=== PATIENT | female | born 1970 | race American Indian/Alaskan Native ===

== ENCOUNTER 2018-01-16 06:22 | Day surgery (SDC) | payer BC, MEDICAID ==
--- NOTE | 2018-01-16 07:24 | Anesthesia Day of Surgery ---
Anesthesia Day of Surgery - Day of Surgery Patient Examined: Yes Patient H&P Reviewed: Yes Patient is NPO: Yes
--- NOTE | 2018-01-16 07:24 | Anesthesia Consultation ---
Anesthesia Consult and Med Hx Date of service: 01/16/18 - Airway Anesthetic Teeth Evaluation: Good ROM Head & Neck: Adequate Mental/Hyoid Distance: Adequate Mallampati Class: Class II Intubation Access Assessment: Good - Pulmonary Exam CTA: Yes - Cardiac Exam Cardiac Exam: RRR - Pre-Operative Health Status ASA Pre-Surgery Classification: ASA2 Proposed Anesthetic Plan: General - Central Nervous System Hx Psychiatric Problems: No - Hematic Hx Anemia: Yes (on iron supplements. no h/o blood transfusion) - Other Systems Hx Cancer: No - Additional Comments Anesthesia Medical History Comments: Informed consent obtained
[2018-01-16 07:26] LABS: Basophils % (Auto) 0.6 % (0.0-1.8); Eosinophils # (Auto) 0.1 K/mm3 (0.0-0.4); Eosinophils % (Auto) 1.7 % (0.0-4.3); Hematocrit 32.9 % (30.3-42.9); Hemoglobin 10.6 gm/dl (10.1-14.3); Lymphocytes % (Auto) 25.5 % (13.4-35.0); Mean Corpuscular HGB Conc 32 % (30-34); Mean Corpuscular Volume 74 fl (79-97); Monocytes # (Auto) 0.4 K/mm3 (0.0-0.8); Monocytes % (Auto) 9.9 % (0.0-7.3); Platelet Count 301 K/mm3 (140-440); Red Blood Count 4.43 M/mm3 (3.65-5.03); Red Cell Distribution Width 17.3 % (13.2-15.2)
[2018-01-16 07:27] LABS: Mean Corpuscular Hemoglobin 24 pg (28-32)
[2018-01-16] MEDS ORDERED: SUBLIMAZE ONE (07:35)
[2018-01-16] MEDS ORDERED: XYLOCAINE MPF 2% ONE (07:35)
[2018-01-16] MEDS ORDERED: DIPRIVAN 10 MG/ML IV ONE ×2 (07:37→07:41)
--- NOTE | 2018-01-16 07:37 | Short Stay Summary ---
Short Stay Documentation Date of service: 01/16/18 Narrative H&P: Pt is a 47yo BF LMP 12/24/17 presents for evaluation and treatment of prolonged heavy vaginal bleeding. Pelvic u/s showed an enlarged uterus 12cm with several fibroids - the largest 6 x 5.5cm, and an endometrial polyp. She presents now for a Hysteroscopy with a D&C/Polypectomy. - History Principal diagnosis: Menorrhagia H&P: obtained from office Past Medical History: No medical history Past Surgical History: appendectomy, Social history: no significant social history, - Allergies and Medications Current Medications: Allergies No Known Allergies Allergy (Unverified 01/11/18 09:49) Home Medications Medication Instructions Recorded Confirmed Last Taken Type No Known Home Medications [No 01/11/18 01/11/18 Unknown History Reported Home Medications] Active Medications Famotidine (Pepcid) 20 mg PO PREOP NR Stop: 01/16/18 11:00 Lactated Ringer's (Lactated Ringers) 1,000 mls @ 100 mls/hr IV DIRECT FRANCESCA Cefazolin Sodium (Ancef/Sterile Water 2 Gm/20 Ml) 2 gm in 20 mls @ 80 mls/hr IV PREOP NR PRN Reason: Protocol Stop: 01/16/18 11:00 Midazolam HCl (Versed) 2 mg IV PREOP NR Stop: 01/16/18 23:59 - Physical exam General appearance: no acute distress Integumentary: no rash HEENT: Atraumatic Lungs: Clear to auscultation Breasts: deferred Heart: Regular rate Gastrointestinal: normal Female Genitourinary: deferred Rectal Exam: deferred Extremities: no ischemia Neurological: Normal gait, Normal speech - Brief post op/procedure progress note Date of procedure: 01/16/18 Pre-op diagnosis: 1. Dysfunctional uterine bleeding 2. Endometrial polyp 3. Uterine fibroids Post-op diagnosis: same (Submucosal fibroid) Procedure: 1. Hysteroscopy 2. Myosure polypectomy 3. D&C Anesthesia: MAC Findings: An enlarged uterus, sounded to 12cm with several endometrial polyps and a submucosal fibroid. Surgeon: TRINIDAD CONLEY Estimated blood loss: minimal Pathology: list (endometrial curettings) Specimen disposition: to lab Condition: stable - Hospital course Hospital course: Unremarkable. - Disposition Condition at discharge: Good Disposition: [id number] TO HOME OR SELFCARE - Discharge Diagnoses (1) Endometrial polyp Status: Acute (2) Uterine fibroid Status: Chronic Qualifiers: Uterine leiomyoma location: intramural, submucous, and subserous Qualified Code(s): D25.1 - Intramural leiomyoma of uterus; D25.0 - Submucous leiomyoma of uterus; D25.0 - Submucous leiomyoma of uterus; D25.2 - Subserosal leiomyoma of uterus; D25.2 - Subserosal leiomyoma of uterus (3) DUB (dysfunctional uterine bleeding) Status: Chronic Short Stay Discharge Plan Activity: no restrictions Diet: regular Follow up with: TRINIDAD CONLEY MD [Primary Care Provider] - 14 Days Prescriptions: HYDROcodone/APAP 5-325 [Cana 5/325] 1 each PO Q6HR PRN #20 tablet PRN Reason: Pain Ibuprofen [Motrin] 800 mg PO Q8HR PRN #30 tablet PRN Reason: Moder Pain Unrelieved By Cana
[2018-01-16] MEDS ORDERED: SILVER NITRATE TP ONE (07:47)
[2018-01-16] MEDS ORDERED: VERSED IV NR (08:00)
[2018-01-16] MEDS ORDERED: LACTATED RINGERS 1,000 ML IV SCH (08:00)
[2018-01-16] MEDS ORDERED: PEPCID PO NR (08:00)
[2018-01-16] MEDS ORDERED: ANCEF/STERILE WATER 2 GM/20 ML 2 GM/20 ML SYRINGE IV NR (08:00)
[2018-01-16] MEDS ORDERED: NACL 0.9% IR ONE (09:06)
[2018-01-16] MEDS ORDERED: NEO SYNEPHRINE/NS Syringe(OR USE) IV ONE (09:10)
[2018-01-16] MEDS ORDERED: ZOFRAN ONE (09:10)
[2018-01-16] MEDS ORDERED: PERCOCET 5/325 PO PRN (09:11)
--- NOTE | 2018-01-16 09:11 | Operative Report ---
Operative Report Operative Report: Date of procedure: 01/16/2018 Pre-operative diagnosis: 1. Dysfunctional uterine bleeding 2. Endometrial polyps 3. Uterine fibroids Post-operative diagnosis: Same Procedure name(s): 1. Hysteroscopy 2. NovaSure polypectomy 3. Dilatation and curettage Surgeon: Jose Worrell MD Wax Coating Machine Tender: None Anesthesia: Gen. mask EBL: 20 mL's Findings: An enlarged uterus, sounded to 12 cm. The endometrial cavity showed several endometrial polyps and a submucosal fibroid Procedure: After the patient was correctly identified, she was prepped and draped in the usual sterile fashion and placed in the dorsolithotomy position. First the bladder was emptied using a straight catheter. Next the speculum was placed in the vaginal vault and the anterior lip of the cervix was grasped using single-tooth tenaculum. The uterus was sounded to 12 cm. The hysteroscope was then placed through the cervical canal, and visualization of endometrial cavity showed several endometrial polyps and a submucosal fibroid. The Myosure device was then used to remove the endometrial polyps, but had difficulty removing the submucosal fibroid. After all the polyps removed, the Myosure device was removed, and gentle curettage performed yielding scant amount of endometrial tissue which was also sent to pathology. At this point the procedure was considered complete. All instruments were removed from the vagina. The patient tolerated the procedure well and was transported to recovery in stable condition.
[2018-01-16] MEDS: DILAUDID IV PRN ×2 (09:25→09:33)
--- NOTE | 2018-01-16 09:27 | Post Anesthesia Evaluation ---
- Post Anesthesia Evaluation Patient Participated: Yes Airway Patent: Yes Stable Respiratory Function: Yes Nausea/Vomiting: No Temp > 96.8F: Yes Pain Manageable: Yes Adequeate Hydration: Yes Anesthesia Complications: No Block Receding Appropriately: Not Applicable Patient on Ventilator: No
[2018-01-16 10:33] VITALS: BP 124/82
== END 2018-01-16 10:45 | disposition home or self-care (01) ==
LOC: OR 06:22
PROVIDERS: ATTEND Obstetrics & Gynecology
DX: N84.0 Polyp of corpus uteri (principal); D25.0 Submucous leiomyoma of uterus; D25.1 Intramural leiomyoma of uterus; Z90.89 Acquired absence of other organs; Z98.890 Other specified postprocedural states; Z79.899 Other long term (current) drug therapy; Z83.3 Family history of diabetes mellitus; Z82.49 Family history of ischemic heart disease and other diseases of the circulatory system
CPT/HCPCS: 36415; 58563; 81025; 85025; 88305; A4217; C1782; J0690; J1170; J2250; J2370; J2405; J2704; J3010; J7120